=== PATIENT | female | born 1950 | race Caucasian/White ===

== ENCOUNTER → 2022-08-21 11:41 | Outpatient (CLI) | payer MEDICARE, SELFPAY ==
--- NOTE | ~2022-08-21 | XR_ITS ---
XR chest 2V DATE: 08/21/2022 11:57 INDICATION: Increased shortness of breath for 4 days TECHNIQUE: 2 views COMPARISON: 09/02/2001 view chest FINDINGS: Borderline heart size. Aortic arch calcification. There is bilateral hyperinflation suggesting obstructive airways disease. There is mild infiltrate or atelectasis in both lower lung zones, right greater than left. Prominent right cardiophrenic fat pad. Diffuse osteopenia. IMPRESSION: Mild infiltrate or atelectasis in the lower lung zones, right greater than left Bilateral hyperinflation suggesting obstructive airways disease Borderline heart size Aortic atherosclerosis Reviewed, dictated and finalized at location B. CAL EDITOR IMPRESSION: Mild infiltrate or atelectasis in the lower lung zones, right great er than left Bilateral hyperinflation suggesting obstructive airways disease Borderline heart size Aortic atherosclerosis
== END ==
PROVIDERS: PCP Family Medicine; Visit Provider Family Medicine
DX: R06.02 Shortness of breath (principal)
CPT/HCPCS: 71046

== ENCOUNTER 2022-09-09 07:10 | Outpatient (CLI) | payer MEDICARE, SELFPAY ==
--- NOTE | 2022-09-09 07:25 | ECHO_ITS ---
Patient Info Name: Keely Levy Age: 71 years : 1950 Gender: Female Ht: 59 in Wt: 160 lbs BSA: 1.77 m2 HR: 59 bpm BP: 175 / 92 mmHg Technical Quality: Good Exam Date: 09/09/2022 7:33 AM Exam Location: [facility] Patient Status: Outpatient Admit Date: 09/09/2022 Staff Ordering Physician: Iván Lee MD Clinical Laboratory Science Professor: Tio Harper, TRINITY, RT Attending Provider: Iván Lee MD Referring Physician: Jesus WEI; Exam Type: CA echo doppler color flow Study Info Indications R01.1 - Cardiac murmur, unspecified Complete two-dimensional, color flow and Doppler transthoracic echocardiogram is performed. Strain analysis performed. Summary 1. Complete two-dimensional, color flow and Doppler transthoracic echocardiogram is performed. 2. Left ventricular chamber dimension is normal. 3. Left ventricular systolic function is normal, estimated at 60-65%. 4. The left ventricular diastolic function is grade I diastolic dysfunction. 5. E/e' 11 is mildly elevated. 6. Global longitudinal strain is abnormal at -15.0%. 7. Left atrial chamber dimension is mildly enlarged. 8. There is mild aortic valve sclerosis. 9. There is mild aortic valve regurgitation. 10. There is trace pulmonic regurgitation. Left Ventricle E/e' 11 is mildly elevated. Global longitudinal strain is abnormal at -15.0%. Left ventricular chamber dimension is normal. Left ventricular systolic function is normal, estimated at 60-65%. The left ventricular diastolic function is grade I diastolic dysfunction. Right Ventricle Right ventricular systolic function is normal and with normal TAPSE 1.9 cm. Right ventricular chamber dimension is normal. Left Atria Left atrial chamber dimension is mildly enlarged. Right Atria Right atrial chamber dimension is normal. Aortic Valve The aortic valve is trileaflet. There is mild aortic valve sclerosis. There is no aortic valve stenosis. There is mild aortic valve regurgitation. Pulmonic Valve There is trace pulmonic regurgitation. Mitral Valve There is no mitral valve stenosis. There is no mitral valve regurgitation. Tricuspid Valve There is no tricuspid valve regurgitation. Pericardium/Pleural There is no pericardial effusion. Inferior Vena Cava Normal inferior vena cava with >50% collapse upon inspiration consistent with normal right atrial pressure, 5 mmHg. Aorta The aortic root size at the sinus of Valsalva is normal. Left Ventricular Outflow Tract Name Value Normal LVOT 2D LVOT Diameter 2.0 cm LVOT Doppler LVOT Peak Gradient 3 mmHg LVOT Mean Gradient 2 mmHg LVOT VTI 26 cm LVOT VTI/AV VTI Ratio 0.9 LVOT Stroke Volume 81 ml LVOT CO 4.2 l/min LVOT CI 2.4 l/min/m2 Mitral Valve Name Value Normal
== END 2022-09-09 07:11 | disposition home or self-care (01) ==
PROVIDERS: PCP Family Medicine; Visit Provider Family Medicine
DX: I50.9 Heart failure, unspecified (principal); R01.1 Cardiac murmur, unspecified; I35.8 Other nonrheumatic aortic valve disorders
CPT/HCPCS: 93306

== ENCOUNTER → 2023-09-29 11:12 | Outpatient (CLI) | payer MEDICARE, SELFPAY ==
--- NOTE | ~2023-09-29 | DEXA_ITS ---
Bone Density Report Name: LIO GARCIA Age: 72 Sex: Female Ethnicity: White Date of : 1950 Indication: postmenopausal; screening for osteoporosis; Referring Provider: JUSTIN CARLIN Study: Bone densitometry was performed. Exam Date: September 29, 2023 Accession number: [id number] Bone Density: Region BMD T-score Z-score Classification AP Spine (L1-L4) 1.106 0.5 2.9 Normal Femoral Neck (Left) 0.743 -1.0 1.1 Normal Total Hip (Left) 0.911 -0.3 1.5 Normal Femoral Neck (Right) 0.734 -1.0 1.0 Normal Total Hip (Right) 0.910 -0.3 1.5 Normal Total Hip Mean 0.911 -0.3 1.5 Normal World Health Organization criteria for BMD impression classify patients as: Normal (T-score at or above -1.0), Osteopenia (T-score between -1.0 and -2.5), or Osteoporosis (T-score at or below -2.5). 10-year Fracture Risk: FRAX not reported because: All T-scores for Spine Total, Hip Total, Femoral Neck at or above -1.0 Clinical Information Provided by Patient: Has used the following medications: Vitamin D Patient maximum height was 59 Menopause Age: 46 No regular weight bearing exercise Does not regularly consume dairy products Drinks caffeinated beverages Onset of menses at age 11 Number of children 3 Impression: The patient has normal bone mass. Discussion: BONE DENSITY IS ABOVE THE MINIMUM DESIRABLE LEVEL AT ALL SKELETAL SITES TESTED. This patient?s bone mineral density is above the minimum desirable level (T-score -1.0 or better) at all sites measured. The patient should follow a healthful lifestyle (good nutrition with adequate calcium and vitamin D, and appropriate weight-bearing exercise). Follow-Up: Consider repeating this study in 5 years or sooner if there is some new clinical indication. Reported by: [facility] on 09/29/2023 11:35:00 AM. Reviewed, dictated and finalized at location ARay HOOPER
== END ==
PROVIDERS: PCP Family Medicine; Visit Provider Nurse Practitioner Family
DX: M81.0 Age-related osteoporosis without current pathological fracture (principal); Z13.820 Encounter for screening for osteoporosis
CPT/HCPCS: 77080

== ENCOUNTER 2023-12-24 12:17 | Inpatient (IN) | payer MEDICARE, SELFPAY ==
[2023-12-24] VITALS (10 sets, daily range): BP systolic 184–227; BP diastolic 50–73; PULSE 45–56; RESP 18–25; TEMP 36.1–36.6; O2SAT 85–98; BMI 34.4
--- NOTE | ~2023-12-24 | XR_ITS ---
EXAMINATION: XR chest 2V DATE: 12/24/2023 13:27 INDICATION: Shortness of breath. Congestive heart failure. TECHNIQUE: Frontal and lateral views of the chest were obtained. COMPARISON: Chest 2 views 08/21/2022, 09/02/2009 FINDINGS: There are small pleural effusions. There is a diffuse interstitial pattern in the lungs, co nsistent with mild pulmonary edema. No pneumothorax. Cardiomegaly is noted. There are prominent peric ardial fat pads. IMPRESSION: 1. Mild pulmonary edema. 2. Small pleural effusions. 3. Cardiomegaly. Reviewed, dictated and finalized at location A.
--- NOTE | 2023-12-24 12:25 | ECG_ITS ---
SEE SCANNED COPY FOR CONFIRMED REPORT MTDD
[2023-12-24 12:47] LABS: Basophils Percent Auto 0.3 % (0.2-1.2); Eosinophils Absolute Auto 0.1 K/mm3 (0-0.3); Eosinophils Percent Auto 0.7 % (0-4.4); Hematocrit 50.2 % (37.0-47.0); Hemoglobin 15.7 g/dL (12.0-15.0); Immature Granulocyte Absolute 0.06 K/mm3 (0.00-0.031); Immature Granulocyte Percent A 0.5 % (0-0.5); Lymphocytes Percent Auto 12.3 % (18.3-44.2); Mean Corpuscular HGB Conc 31.3 g/dl (32-36); Mean Corpuscular Hemoglobin 29.8 pg (26-34); Mean Corpuscular Volume 95.4 fl (80-100); Mean Platelet Volume 8.9 fl (7.4-10.4); Monocytes Absolute Auto 0.7 K/mm3 (0.1-0.6); Monocytes Percent Auto 6.1 % (2.6-8.5); Neutrophils Absolute Auto 9.8 K/mm3 (1.3-6.7); Neutrophils Percent Auto 80.1 % (45.5-73.1); Platelet Count Result 217 k/mm3 (150-375); Red Blood Count 5.26 M/mm3 (4.2-5.4); Red Cell Distribution Width 14.1 % (11.5-14.5); White Blood Count 12.2 K/mm3 (4.5-10.0)
[2023-12-24 12:56] LABS: Alanine Aminotransferase 26 U/L (6-35); Albumin Level 4.2 g/dL (3.5-5.1); Alkaline Phosphatase 98 U/L (38-126); Anion Gap 5 mmol/L (4-12); Aspartate Amino Transferase 26 U/L (14-36); Bilirubin,Total 0.6 mg/dL (0.2-1.3); Blood Urea Nitrogen 11 mg/dL (7-17); Calcium 8.8 mg/dL (8.4-10.2); Carbon Dioxide 31 mmol/L (22-30); Chloride 103 mmol/L (98-107); Estimated Glomerular Filt Rate > 60; Glucose 101 mg/dL (65-110); Potassium 4.1 mmol/L (3.4-5.0); Sodium 139 mmol/L (137-145)
[2023-12-24 12:57] LABS: Prothrombin Time 13.5 Seconds (11.1-14.7)
[2023-12-24 12:58] LABS: Partial Thromboplastin Time 29.4 Seconds (22.3-36.8)
[2023-12-24 13:08] LABS: NT Pro B Type Natriuretic Pept 3250 pg/mL (19.9-100); Troponin I < 0.012 ng/mL (0.000-0.034)
[2023-12-24 13:16] LABS: Base Excess ABG 4.9 mEq/l (+/-2.0); Carboxyhemoglobin 4.4 % THb (0-2.0); Fractional Inspired Oxygen 28 %; HCO3 ABG 31.5 mEq/l (22.0-26.0); Methemoglobin ABG 0.2 %THb (0-1.5); Oxygen Content ABG 20.3 %vol (16.0-22.0); Oxyhemoglobin 88.8 % THb (90.0-100.0); PCO2 ABG 53.4 mmHg (35.0-45.0); PO2 ABG 67.6 mmHg (80.0-100.0); PO2 FiO2 Ratio Arterial Blood 2.41 %; Reduced Hemoglobin 6.6 %THb (0-5.0); Total Hemoglobin 16.3 g/dL (12.0-18.0); pH ABG 7.389 (7.350-7.450)
[2023-12-24 13:17] LABS: Device NASAL CANNULA; Modified Allen's Test Pass; Site Drawn RIGHT RADIAL
[2023-12-24] MEDS: FUROSEMIDE INJ 40 MG/4 ML VIAL IV PUSH ×2 (14:07→20:04)
--- NOTE | 2023-12-24 14:15 | ED.SOB ---
HPI - SOB/Dyspnea General Chief Complaint: Shortness of Breath/Dyspnea Stated Complaint: SOB Time Seen by Provider: 12/24/23 12:25 History of Present Illness HPI Narrative: the patient is a 73-year-old female who presents ER with shortness of breath. She went to her PCPs office today and was too tired to walk or talk upon getting inside. She reports progressive shortness of breath over last couple of days. Patient found to be hypoxic her doctor's office and on arrival here. She is on supplemental oxygen and is feeling improved. Reports compliance with home medication. No chest pain. Related Data Home Medications Medication Instructions Recorded Confirmed atenolol 50 mg tablet 50 mg PO Q12H 12/24/23 12/24/23 ezetimibe 10 mg tablet (Zetia) 10 mg PO QAM 12/24/23 12/24/23 lisinopril 20 mg tablet 20 mg PO Q12H 12/24/23 12/24/23 Allergies Allergy/AdvReac Type Severity Reaction Status Date / Time atorvastatin Allergy Unknown aches Verified 12/24/23 12:26 metformin Allergy Unknown Skin Verified 12/24/23 12:26 Reaction Review of Systems Review of Systems: All systems reviewed & are unremarkable except as noted in HPI and below Constitutional: Constitutional: Reports no additional constitutional complaints ENT: Reports system reviewed and no additional complaints, except as documented Cardiovascular: Cardiovascular: Reports no additional cardiovascular complaints Respiratory: Respiratory: Denies chest congestion, Denies cough, Reports dyspnea and Denies wheezing Gastrointestinal: Gastrointestinal: Reports no additional gastrointestinal complaints Musculoskeletal: Musculoskeletal: Reports no additional musculoskeletal complaints Neurologic: Reports system reviewed and no additional complaints, except as documented [facility] Past Medical History Medical History (Updated 12/24/23 @ 21:34 by Elver Pierce MD) Aortic regurgitation Aortic valve sclerosis CHF (congestive heart failure) COPD (chronic obstructive pulmonary disease) Essential (primary) hypertension Hepatitis C antibody test negative (~08/10/19) History of mammogram (~09/13/13) Internal derangement of right knee Migraine NOS/intractable Mixed hyperlipidemia Postmenopausal Silicosis Surgical History Surgical History History of adenoidectomy (~1959) History of tonsillectomy (~1959) History of tubal ligation (~1977) Family History Family History (Updated 12/24/23 @ 17:07 by Jocy Cano RN) Father Patient's father is Sibling Family history of malignant neoplasm of brain Diabetes mellitus Hypertension Other Family history of cardiovascular disease Family history of hypercholesterolemia Social History Social History Social History: Caffeine-coffee/tea Smoking packs per day: 1 Smoking cigarettes per day: 20.0 Years smoked: 15 Smoking pack-years: 15.00 Smoking status: Former smoker Tobacco type: cigarettes Alcohol intake: never Substance use: never Substance use type: does not use Do You Feel Safe in your Home?: Yes Lack of Transportation: No Lack of Food: Never True Current Housing: I Have Housing Concerned About Future Housing: No Difficulty Paying Gas/Electric Bills: No Difficulty Paying for Meds: No Currently Unemployed: No Education: High School Diploma/GED Difficulty w/ Childcare or Family Care: No Spiritual care concerns: No Exam Narrative: GENERAL: Well-appearing, well-nourished, and in no acute distress. HEAD: Normocephalic, atraumatic. ENT: Mucous membranes moist. CHEST: Clear to auscultation but diminished throughout. No respiratory distress. HEART: bradycardic and regular. Normal peripheral pulses. ABDOMEN: Soft, nontender, nondistended. EXTREMITIES: Normal range of motion. 1+ edema. SKIN: Warm, dry, no rash. NEURO: Alert
[2023-12-24] MEDS: NITROGLYCERIN OINTMENT 1 INCH DOSE TRANSDERM (14:24)
--- NOTE | 2023-12-24 17:11 | ADMGEN ---
This patient, Keely Levy, was admitted to IMU Room 205-01. Patient/family oriented to hospital policies and general routines including ID bracelet, bed and alarms, visiting hours, pain management, procedures, bathroom and other care routines, personal items, smoking policy, room service/diet, and visiting hours. Information on how to activate the Rapid Response Team has been discussed. Patient/Family are encouraged to report perceived risks to care and to ask questions if they do not understand what they are told or what they should do.
--- NOTE | 2023-12-24 21:08 | PM.IMHP ---
H&P: HPI History of Present Illness Date/Time: 12/24/23 21:08 Chief Complaint: sob Narrative: This is a 73-year-old female with past medical history significant for obstructive sleep apnea on CPAP at nighttime, hypertension, type diabetes mellitus, Congestive heart failure. Patient presents to the emergency room due to shortness of breath that has been present for several days, she has a persistent cough productive of scanty pearly white sputum, denies any fevers, rigors, chills, denies leg swelling no chest pain no palpitations, no dizziness, no lightheadedness, no headaches. Patient had made appointment with her primary care physician due to progressively worsening shortness of breath now present with mild exertion upon arrival to the physician's office patient was in severe respiratory distress which prompted the office to call EMS and patient was brought to the emergency room where she was found to have a low oxygen saturation and placed on supplemental oxygen by nasal cannula. Patient was also found to have a systolic blood pressure 230. preliminary workup was significant for a BNP upwards 3000 Patient has been placed in observation for further evaluation management and treatment. EXAMINATION: XR chest 2V DATE: 12/24/2023 13:27 INDICATION: Shortness of breath. Congestive heart failure. TECHNIQUE: Frontal and lateral views of the chest were obtained. COMPARISON: Chest 2 views 08/21/2022, 09/02/2009 FINDINGS: There are small pleural effusions. There is a diffuse interstitial pattern in the lungs, consistent with mild pulmonary edema. No pneumothorax. Cardiomegaly is noted. There are prominent pericardial fat pads. IMPRESSION: 1. Mild pulmonary edema. 2. Small pleural effusions. 3. Cardiomegaly. Review of Systems Review of Systems: sob, cough productive of scanty sputum Constitutional: Constitutional: Denies chills, Denies fatigue, Denies fever(s), Denies malaise, Denies night sweats and Denies weakness Eyes: Eyes: Denies change in vision ENT: Denies dysphagia and Denies odynophagia Cardiovascular: Cardiovascular: Denies chest pain, Denies leg edema, Denies radiating jaw, neck or arm pain, Denies palpitations and Reports dyspnea on exertion Respiratory: Respiratory: Reports cough Gastrointestinal: Gastrointestinal: Denies abdominal pain, Denies dyspepsia, Denies heartburn, Denies diarrhea, Denies nausea and Denies vomiting Genitourinary: Genitourinary: Denies dysuria Musculoskeletal: Musculoskeletal: Denies arthralgias and Denies joint swelling Integumentary/Breasts: Skin/Breast: Denies rash Neurologic: Denies focal weakness and Denies Sensory deficit (Neuro) Psychiatric: Psychiatric: Reports no additional psychiatric complaints and Reports as per HPI Endocrine: Endocrine: Denies cold intolerance, Denies heat intolerance, Denies polyphagia, Denies polydipsia, Denies polyuria and Denies palpitations Hematologic/Lymphatic: Hematologic/Lymphatic: Reports no additional hematologic/lymphatic complaints and Reports as per HPI Allergic/Immunologic: Allergic/Immunologic: Reports no additional allergic/immunologic complaints and Reports as per HPI [facility] Past Medical History Medical History (Updated 12/25/23 @ 02:03 by Zaida Ulloa MD) Aortic regurgitation Aortic valve sclerosis CHF (congestive heart failure) COPD (chronic obstructive pulmonary disease) Essential (primary) hypertension Hepatitis C antibody test negative (~08/10/19) History of mammogram (~09/13/13) Internal derangement of right knee Migraine NOS/intractable Mixed hyperlipidemia Postmenopausal Silicosis Surgical History Surgical History History of adenoidectomy (~1959) History of tonsillectomy (~1959) History of tubal ligation (~1977) Family History Family History (Updated 12/24/23 @ 17:07 by Jocy Cano RN) Father Patient's father is Sibli
[2023-12-25] VITALS (18 sets, daily range): BP systolic 151–176; BP diastolic 47–89; PULSE 43–65; RESP 16–24; TEMP 36.4–37.2; O2SAT 91–96
--- NOTE | 2023-12-25 | ECHO_ITS ---
Patient Info Name: Keely Levy Age: 73 years : 1950 Gender: Female Ht: 59 in Wt: 156 lbs BSA: 1.75 m2 HR: 95 bpm BP: 151 / 64 mmHg Heart Rhythm: Sinus Rhythm Technical Quality: Good Exam Date: 12/25/2023 6:33 AM Exam Location: [facility] Lab Patient Status: Inpatient Admit Date: 12/24/2023 Staff Ordering Physician: Flor Whiteside APRN Accounts Collector: Jose Caro RDCS Attending Provider: Trevor Bettencourt MD Referring Physician: Miesha PINEDA; Exam Type: CA echo doppler color flow Study Info Indications - elevated bnp, pul edema Complete two-dimensional, color flow and Doppler transthoracic echocardiogram is performed. Summary 1. Complete two-dimensional, color flow and Doppler transthoracic echocardiogram is performed. 2. Left ventricular dimension at the upper limits of normal with overall normal systolic function. 3. Mild to moderate aortic valve regurgitation. 4. Mild mitral annular calcification. Left Ventricle Left ventricular chamber dimension is mildly enlarged. Left ventricular systolic function is normal, estimated at 55-60%. The left ventricular diastolic function is normal. Right Ventricle Right ventricular chamber dimension is normal. Left Atria Left atrial chamber dimension is mildly enlarged. Right Atria Right atrial chamber dimension is normal. Aortic Valve The aortic valve is trileaflet. There is mild aortic valve sclerosis. There is mild to moderate aortic valve regurgitation. Pulmonic Valve The pulmonic valve is not well visualized. Mitral Valve The mitral valve has normal leaflets. The mitral valve annulus is mildly calcified. Tricuspid Valve The tricuspid valve leaflets are normal. Pericardium/Pleural The pericardium appears normal. Aorta The aortic root size at the sinus of Valsalva is normal. Report Signatures
[2023-12-25] MEDS: atenoloL 50 MG TABLET PO ×2 (02:16→08:43)
[2023-12-25] MEDS: lisinopriL 20 MG TABLET PO ×3 (02:16→22:15)
[2023-12-25] MEDS: FUROSEMIDE INJ 40 MG/4 ML VIAL IV PUSH ×2 (08:43→22:15)
--- NOTE | 2023-12-25 10:25 | PM.IMPN ---
Progress Note: A&P Assessment and Plan (1) Acute exacerbation of CHF (congestive heart failure): Code(s): I50.9 - Heart failure, unspecified Status: Acute Assessment and Plan: diurese as needed- I/O echocardiogram completed- EF 55-60% Summary ? 1. Complete two-dimensional, color flow and Doppler transthoracic echocardiogram is performed. ? 2. Left ventricular dimension at the upper limits of normal with overall normal systolic function. ? 3. Mild to moderate aortic valve regurgitation. ? 4. Mild mitral annular calcification. - daily intake and output - cardiology consulted -BP improved - will move out of MICU to med surg tele (2) Acute hypoxic respiratory failure: Code(s): J96.01 - Acute respiratory failure with hypoxia Status: Acute Assessment and Plan: currently on supplemental oxygen by nasal cannula wean off of oxygen as needed continuous pulse ox cpap at night (3) Hypertension, isolated systolic: Code(s): I10 - Essential (primary) hypertension Status: Acute Assessment and Plan: restart home meds- atenolol 50 mg q12hm lisinopril 20 mg continue to monitor- BP imporved (4) Type 2 diabetes mellitus: Code(s): E11.9 - Type 2 diabetes mellitus without complications Status: Acute Assessment and Plan: holding Zetia insulin sliding scale as needed Time Spent With Patient Time with patient: 15 - 25 minutes Subjective Date/time seen: 12/25/23 10:25 Interval history: admitted 12/23 for SOB x couple of days. She went to her PCPs office, was too tired to walk or talk upon getting inside. Patient found to be hypoxic her doctor's office.? She was placed on supplemental oxygen and felt better.? Reports compliance with home medication.? No chest pain. Patient was also found to have a? systolic blood pressure 230.? preliminary workup was significant for a BNP around 3000 Patient has been placed in observation for further evaluation management and treatment. 12/24- she is seen and examined today. She is sitting on side of the bed, alert, oriented, in no respiratory distress. Reports feeling a lot better Review of Systems Review of Systems: sob, cough productive of scanty sputum Constitutional: Constitutional: Denies chills, Denies fatigue, Denies fever(s), Denies malaise, Denies night sweats and Denies weakness Eyes: Eyes: Denies change in vision ENT: Denies dysphagia and Denies odynophagia Cardiovascular: Cardiovascular: Denies chest pain, Denies leg edema, Denies radiating jaw, neck or arm pain, Denies palpitations and Reports dyspnea on exertion Respiratory: Respiratory: Reports cough and Reports dyspnea on exertion Gastrointestinal: Gastrointestinal: Denies abdominal pain, Denies dysphagia, Denies dyspepsia, Denies heartburn, Denies diarrhea, Denies nausea, Denies odynophagia and Denies vomiting Genitourinary: Genitourinary: Denies dysuria Musculoskeletal: Musculoskeletal: Denies arthralgias and Denies joint swelling Integumentary/Breasts: Skin/Breast: Denies rash Neurologic: Denies focal weakness, Denies Sensory deficit (Neuro) and Denies weakness Psychiatric: Psychiatric: Reports no additional psychiatric complaints and Reports as per HPI Endocrine: Endocrine: Denies cold intolerance, Denies fatigue, Denies heat intolerance, Denies polyphagia, Denies polydipsia, Denies polyuria and Denies palpitations Hematologic/Lymphatic: Hematologic/Lymphatic: Reports no additional hematologic/lymphatic complaints and Reports as per HPI Allergic/Immunologic: Allergic/Immunologic: Reports no additional allergic/immunologic complaints and Reports as per HPI Exam Narrative: patient is laying in bed Const: General: comfortable, no acute distress, well developed, alert, awake, average body habitus and overweight Nutritional Appearance: average body habitus and overweight Orientation/consciousness: patient oriented x3 HENMT: Head: n
[2023-12-25 11:45] LABS: Glucose Point of Care 84 mg/dl (65-105)
[2023-12-25 18:34] LABS: Glucose Point of Care 102 mg/dl (65-105)
[2023-12-25 19:17] LABS: Glucose Point of Care 133 mg/dl (65-105)
--- NOTE | 2023-12-25 20:44 | PC.NURSE ---
Pt transferred from IMU 205-1 to 2nd Medical Room 259. Report received from LASHAY Castañeda.
[2023-12-26] VITALS (12 sets, daily range): BP systolic 136–151; BP diastolic 42–54; PULSE 43–58; RESP 17–20; TEMP 36.4–36.6; O2SAT 92–96
[2023-12-26 05:06] LABS: Hematocrit 51.3 % (37.0-47.0); Hemoglobin 15.7 g/dL (12.0-15.0); Mean Corpuscular HGB Conc 30.6 g/dl (32-36); Mean Corpuscular Hemoglobin 29.6 pg (26-34); Mean Corpuscular Volume 96.6 fl (80-100); Mean Platelet Volume 9.2 fl (7.4-10.4); Platelet Count Result 207 k/mm3 (150-375); Red Blood Count 5.31 M/mm3 (4.2-5.4); Red Cell Distribution Width 13.9 % (11.5-14.5); White Blood Count 9.4 K/mm3 (4.5-10.0)
[2023-12-26 05:16] LABS: Alanine Aminotransferase 21 U/L (6-35); Alkaline Phosphatase 85 U/L (38-126); Anion Gap 4 mmol/L (4-12); Aspartate Amino Transferase 21 U/L (14-36); Bilirubin,Total 0.8 mg/dL (0.2-1.3); Blood Urea Nitrogen 19 mg/dL (7-17); Calcium 8.5 mg/dL (8.4-10.2); Carbon Dioxide 39 mmol/L (22-30); Chloride 95 mmol/L (98-107); Estimated Glomerular Filt Rate > 60; Glucose 99 mg/dL (65-110); Potassium 3.5 mmol/L (3.4-5.0); Sodium 138 mmol/L (137-145)
--- NOTE | 2023-12-26 08:23 | PM.IMPN ---
Progress Note: A&P Assessment and Plan (1) Acute exacerbation of CHF (congestive heart failure): Code(s): I50.9 - Heart failure, unspecified Status: Acute Assessment and Plan: diurese as needed- I/O echocardiogram completed- EF 55-60% Summary ? 1. Complete two-dimensional, color flow and Doppler transthoracic echocardiogram is performed. ? 2. Left ventricular dimension at the upper limits of normal with overall normal systolic function. ? 3. Mild to moderate aortic valve regurgitation. ? 4. Mild mitral annular calcification. - daily intake and output - cardiology consulted -BP improved - moved out of MICU 12/24 to med surg tele - will stop atenolol as bradicardic - will add jardiance - will wait for card eval to see if any BP/chf meds recommended (2) Acute hypoxic respiratory failure: Code(s): J96.01 - Acute respiratory failure with hypoxia Status: Acute Assessment and Plan: currently on supplemental oxygen by nasal cannula wean off of oxygen as needed continuous pulse ox cpap at night (3) Hypertension, isolated systolic: Code(s): I10 - Essential (primary) hypertension Status: Acute Assessment and Plan: restart home meds- lisinopril 20 mg bid, will hold atelolol for now as was not even given as pt bradicardic continue to monitor- BP improved 151/43 this am (4) Type 2 diabetes mellitus: Code(s): E11.9 - Type 2 diabetes mellitus without complications Status: Acute Assessment and Plan: holding Zetia insulin sliding scale as needed Time Spent With Patient Time with patient: 15 - 25 minutes Subjective Date/time seen: 12/26/23 08:23 Interval history: admitted 12/23 for SOB x couple of days. She went to her PCPs office, was too tired to walk or talk upon getting inside. Patient found to be hypoxic her doctor's office.? She was placed on supplemental oxygen and felt better.? Reports compliance with home medication.? No chest pain. Patient was also found to have a? systolic blood pressure 230.? preliminary workup was significant for a BNP around 3000 Patient has been placed in observation for further evaluation management and treatment. 12/24- she is seen and examined today. She is sitting on side of the bed, alert, oriented, in no respiratory distress. Reports feeling a lot better. 5/12- seen and examined. Reports doing well. up and moving in room. Still has o2- goal today is to stop oxygen as tolerated. Will order card eval. she reports that he pcp diagnoses her with CHF last year and she never seen cardiology for an eval and treatment. Review of Systems Review of Systems: sob, cough productive of scanty sputum Constitutional: Constitutional: Denies chills, Denies fatigue, Denies fever(s), Denies malaise, Denies night sweats and Denies weakness Eyes: Eyes: Denies change in vision ENT: Denies dysphagia and Denies odynophagia Cardiovascular: Cardiovascular: Denies chest pain, Denies leg edema, Denies radiating jaw, neck or arm pain, Denies palpitations and Reports dyspnea on exertion Respiratory: Respiratory: Reports cough and Reports dyspnea on exertion Gastrointestinal: Gastrointestinal: Denies abdominal pain, Denies dysphagia, Denies dyspepsia, Denies heartburn, Denies diarrhea, Denies nausea, Denies odynophagia and Denies vomiting Genitourinary: Genitourinary: Denies dysuria Musculoskeletal: Musculoskeletal: Denies arthralgias and Denies joint swelling Integumentary/Breasts: Skin/Breast: Denies rash Neurologic: Denies focal weakness, Denies Sensory deficit (Neuro) and Denies weakness Psychiatric: Psychiatric: Reports no additional psychiatric complaints and Reports as per HPI Endocrine: Endocrine: Denies cold intolerance, Denies fatigue, Denies heat intolerance, Denies polyphagia, Denies polydipsia, Denies polyuria and Denies palpitations Hematologic/Lymphatic: Hematologic/Lymphatic: Reports no additional hematologic/lym
[2023-12-26] MEDS: lisinopriL 20 MG TABLET PO ×2 (08:45→21:22)
[2023-12-26] MEDS: FUROSEMIDE INJ 40 MG/4 ML VIAL IV PUSH ×2 (08:45→21:22)
[2023-12-27] VITALS (13 sets, daily range): BP systolic 114–139; BP diastolic 41–54; PULSE 52–65; RESP 16–18; TEMP 36.4–36.8; O2SAT 91–98
[2023-12-27 05:57] LABS: Hemoglobin 15.3 g/dL (12.0-15.0); Mean Corpuscular HGB Conc 30.6 g/dl (32-36); Mean Corpuscular Hemoglobin 29.5 pg (26-34); Mean Corpuscular Volume 96.3 fl (80-100); Platelet Count Result 207 k/mm3 (150-375); Red Blood Count 5.19 M/mm3 (4.2-5.4); Red Cell Distribution Width 13.7 % (11.5-14.5); White Blood Count 9.3 K/mm3 (4.5-10.0)
[2023-12-27 06:04] LABS: Alanine Aminotransferase 18 U/L (6-35); Albumin Level 3.7 g/dL (3.5-5.1); Alkaline Phosphatase 79 U/L (38-126); Aspartate Amino Transferase 18 U/L (14-36); Bilirubin,Total 0.7 mg/dL (0.2-1.3); Blood Urea Nitrogen 18 mg/dL (7-17); Calcium 8.4 mg/dL (8.4-10.2); Carbon Dioxide > 40 mmol/L (22-30); Chloride 93 mmol/L (98-107); Estimated Glomerular Filt Rate > 60; Glucose 101 mg/dL (65-110); Potassium 3.2 mmol/L (3.4-5.0); Sodium 135 mmol/L (137-145)
--- NOTE | 2023-12-27 08:45 | PM.IMPN ---
Progress Note: A&P Assessment and Plan (1) Acute exacerbation of CHF (congestive heart failure): Code(s): I50.9 - Heart failure, unspecified Status: Acute Assessment and Plan: HFpEF unknown if systolic vs diastolic diurese as needed- I/O echocardiogram completed- EF 55-60% Summary ? 1. Complete two-dimensional, color flow and Doppler transthoracic echocardiogram is performed. ? 2. Left ventricular dimension at the upper limits of normal with overall normal systolic function. ? 3. Mild to moderate aortic valve regurgitation. ? 4. Mild mitral annular calcification. - daily intake and output - cardiology consulted -BP improved - moved out of MICU 12/24 to med surg tele - atenolol was stopped as bradycardic - on jardiance now - hypokalemia-will replace K -awaiting card consult (2) Acute hypoxic respiratory failure: Code(s): J96.01 - Acute respiratory failure with hypoxia Status: Acute Assessment and Plan: currently on supplemental oxygen by nasal cannula wean off of oxygen as needed continuous pulse ox cpap at night (3) Hypertension, isolated systolic: Code(s): I10 - Essential (primary) hypertension Status: Acute Assessment and Plan: restart home meds- lisinopril 20 mg bid, will hold atelolol for now as was not even given as pt bradicardic continue to monitor- BP improved (4) Type 2 diabetes mellitus: Code(s): E11.9 - Type 2 diabetes mellitus without complications Status: Acute Assessment and Plan: holding Zetia insulin sliding scale as needed Plan will stop IV lasix - will order 20 mg po lasix starting tomorrow Time Spent With Patient Time with patient: less than 15 minutes Subjective Date/time seen: 12/27/23 08:45 Interval history: admitted 12/23 for SOB x couple of days. She went to her PCPs office, was too tired to walk or talk upon getting inside. Patient found to be hypoxic her doctor's office.? She was placed on supplemental oxygen and felt better.? Reports compliance with home medication.? No chest pain. Patient was also found to have a? systolic blood pressure 230.? preliminary workup was significant for a BNP around 3000 Patient has been placed in observation for further evaluation management and treatment. 12/24- she is seen and examined today. She is sitting on side of the bed, alert, oriented, in no respiratory distress. Reports feeling a lot better. 12/25- seen and examined. Reports doing well. up and moving in room. Still has o2- goal today is to stop oxygen as tolerated. Will order card eval. she reports that he pcp diagnoses her with CHF last year and she never seen cardiology for an eval and treatment. 12/26 Seen and exmained today, down to 1 l per nc. doing well. was not able to drink much fluids at all. no swelling, no sob, no chest pain. Review of Systems Review of Systems: sob, cough productive of scanty sputum Constitutional: Constitutional: Denies chills, Denies fatigue, Denies fever(s), Denies malaise, Denies night sweats and Denies weakness Eyes: Eyes: Denies change in vision ENT: Denies dysphagia and Denies odynophagia Cardiovascular: Cardiovascular: Denies chest pain, Denies leg edema, Denies radiating jaw, neck or arm pain, Denies palpitations and Reports dyspnea on exertion Respiratory: Respiratory: Reports cough and Reports dyspnea on exertion Gastrointestinal: Gastrointestinal: Denies abdominal pain, Denies dysphagia, Denies dyspepsia, Denies heartburn, Denies diarrhea, Denies nausea, Denies odynophagia and Denies vomiting Genitourinary: Genitourinary: Denies dysuria Musculoskeletal: Musculoskeletal: Denies arthralgias and Denies joint swelling Integumentary/Breasts: Skin/Breast: Denies rash Neurologic: Denies focal weakness, Denies Sensory deficit (Neuro) and Denies weakness Psychiatric: Psychiatric: Reports no additional psychiatric complaints and Reports as per HPI Endocrine:
[2023-12-27] MEDS: EMPAGLIFLOZIN 10 MG TABLET PO (09:12)
[2023-12-27] MEDS: FUROSEMIDE INJ 40 MG/4 ML VIAL IV PUSH (09:12)
[2023-12-27] MEDS: lisinopriL 20 MG TABLET PO ×2 (09:12→20:05)
[2023-12-27] MEDS: SODIUM CHLORIDE 0.9% IV 1,000 ML 100 ML IV CONT (09:47)
[2023-12-27] MEDS: POTASSIUM CITRATE 5 MEQ TAB CR 10 MEQ PO (09:47)
--- NOTE | 2023-12-27 13:04 | P.CDI_ITS ---
CDI Query Clarification Request Acute exacerbation of CHF has been documented. Initial BNP of 3250, patient receiving IV Lasix. Please specify type of heart failure if known. * Systolic * Diastolic * Combined Systolic and Diastolic * Unknown <GURMEET Platt - Last Filed: 12/27/23 13:06> Clarified Diagnosis Clarified Diagnosis: unknown <Rita Daniels APRN - Last Filed: 12/27/23 14:24>
--- NOTE | 2023-12-27 15:46 | PM.CNCAR ---
Assessment and Plan Assessment and plan (1) Acute exacerbation of CHF (congestive heart failure): Code(s): I50.9 - Heart failure, unspecified Status: Acute Plan This is a 73-year-old lady with a history of congestive heart failure decompensation which for which she was hospitalized 3 days ago. She has had a good clinical response to IV diuresis with furosemide and she is in no distress any longer. She is not having any ischemic symptomatology. Her echocardiogram shows borderline left ventricular enlargement with moderate aortic regurgitation. I would recommend leaving her on her lisinopril at this time and starting carvedilol at home moderate dosage of 6.25 mg q.12 hours. I would also recommend starting spironolactone 25 mg daily. She has appropriately been started on Jardiance by the primary team. I would hope she can be discharged in the next 24-48 hours if she is clinically stable and well compensated. It remains to be seen whether she needs both spironolactone and furosemide. She was on no diuretic therapy coming into the hospital. I will follow her in the office in a timely fashion after discharge for medical titration. At this point she is not having any ischemic symptoms and I do not think she needs to remain in the hospital for ischemia evaluation at least at this time Iván Rojas MD [facility] History of Present Illness History of Present Illness Consult date/time: 12/27/23 15:46 Reason For Visit: CHF Exacebation/Hypoxia/HTN Narrative: This is a very pleasant 73-year-old lady I am seeing at the request of the hospitalist because of concern regarding congestive heart failure she is has been having episodes of shortness of breath which he describes as fluid in her chest off and on for about a year. She says these episodes were managed by her primary care physician she has not had to be hospitalized in the past. She went to see her physician on Wednesday of last week when playing because of worsening dyspnea. She states she was in significant respiratory distress when she got to the office and when they saw her difficult a time she was having an ambulance was called and she was taken to the emergency department. She was evaluated in the ED and admitted to the hospital and for a couple of days was given intravenous furosemide. She is feeling better since she was diuresed she has now been switched to oral furosemide. She denies having any knowledge of any cardiac problems in the past she does have hypertension which was managed for a long time with lisinopril and atenolol. She says that her atenolol has been stopped because of bradycardia. She does have a history of elevated cholesterol no history of diabetes and a remote history of smoking she quit a long time ago. Not known to have underlying lung disease. She is overweight with a BMI of 32.2. She is a single lady in lives on her own her own home. She had an echocardiogram done upon this admission which was interpreted by myself as showing borderline left ventricular enlargement with preserved ejection fraction and moderate aortic valve regurgitation. She is not having any orthopnea or PND and she sleeps well. Review of Systems Constitutional: Constitutional: Reports no additional constitutional complaints Eyes: Eyes: Reports no additional eye complaints ENT: Reports system reviewed and no additional complaints, except as documented Cardiovascular: Cardiovascular: Reports as per HPI Respiratory: Respiratory: Reports dyspnea on exertion Gastrointestinal: Gastrointestinal: Reports no additional gastrointestinal complaints Musculoskeletal: Musculoskeletal: Reports no additional musculoskeletal complaints Integumentary/Breasts: Skin/Breast: Reports system reviewed and no additional complaints, except as docu Neurologic: Reports system reviewed and no additional complaints, except as documented Endocrine: Endocrine: Reports no additional endocrine complaints
[2023-12-27] MEDS: carvediloL 6.25 MG TABLET PO (20:05)
[2023-12-27 20:33] LABS: Glucose Point of Care 111 mg/dl (65-105)
[2023-12-28] VITALS (8 sets, daily range): BP systolic 123–157; BP diastolic 47–56; PULSE 56–66; RESP 18–20; TEMP 36.4–36.7; O2SAT 90–91
[2023-12-28 05:32] LABS: Hematocrit 48.5 % (37.0-47.0); Hemoglobin 15.1 g/dL (12.0-15.0); Mean Corpuscular HGB Conc 31.1 g/dl (32-36); Mean Corpuscular Hemoglobin 29.5 pg (26-34); Mean Corpuscular Volume 94.7 fl (80-100); Mean Platelet Volume 9.3 fl (7.4-10.4); Platelet Count Result 212 k/mm3 (150-375); Red Blood Count 5.12 M/mm3 (4.2-5.4); Red Cell Distribution Width 13.9 % (11.5-14.5); White Blood Count 8.4 K/mm3 (4.5-10.0)
[2023-12-28 05:38] LABS: Alanine Aminotransferase 16 U/L (6-35); Albumin Level 3.7 g/dL (3.5-5.1); Alkaline Phosphatase 75 U/L (38-126); Anion Gap 3 mmol/L (4-12); Aspartate Amino Transferase 21 U/L (14-36); Bilirubin,Total 0.9 mg/dL (0.2-1.3); Blood Urea Nitrogen 22 mg/dL (7-17); Calcium 8.6 mg/dL (8.4-10.2); Carbon Dioxide 36 mmol/L (22-30); Chloride 95 mmol/L (98-107); Estimated Glomerular Filt Rate > 60; Glucose 98 mg/dL (65-110); Potassium 3.8 mmol/L (3.4-5.0); Sodium 134 mmol/L (137-145)
[2023-12-28] MEDS: lisinopriL 20 MG TABLET PO (08:23)
[2023-12-28] MEDS: carvediloL 6.25 MG TABLET PO (08:23)
[2023-12-28] MEDS: EMPAGLIFLOZIN 10 MG TABLET PO (08:23)
[2023-12-28] MEDS: FUROSEMIDE 20 MG TABLET PO (08:24)
[2023-12-28] MEDS: SPIRONOLACTONE 25 MG TABLET PO (08:24)
--- NOTE | 2023-12-28 09:14 | PM.IMPN ---
Progress Note: A&P Assessment and Plan (1) Acute exacerbation of CHF (congestive heart failure): Code(s): I50.9 - Heart failure, unspecified Status: Acute Assessment and Plan: HFpEF unknown if systolic vs diastolic diurese as needed- I/O echocardiogram completed- EF 55-60% Summary ? 1. Complete two-dimensional, color flow and Doppler transthoracic echocardiogram is performed. ? 2. Left ventricular dimension at the upper limits of normal with overall normal systolic function. ? 3. Mild to moderate aortic valve regurgitation. ? 4. Mild mitral annular calcification. - daily intake and output - cardiology consulted -BP improved - moved out of MICU 12/24 to med surg tele - atenolol was stopped as bradycardic - on jardiance now - hypokalemia-will replace K -card saw her ok to keep lisinopril, add spironolactone, ok to continue jardiance. f/u with card outpt (2) Acute hypoxic respiratory failure: Code(s): J96.01 - Acute respiratory failure with hypoxia Status: Acute Assessment and Plan: currently on supplemental oxygen by nasal cannula wean off of oxygen as needed continuous pulse ox cpap at night (3) Hypertension, isolated systolic: Code(s): I10 - Essential (primary) hypertension Status: Acute Assessment and Plan: restart home meds- lisinopril 20 mg bid, will hold atelolol for now as was not even given as pt bradicardic continue to monitor- BP improved (4) Type 2 diabetes mellitus: Code(s): E11.9 - Type 2 diabetes mellitus without complications Status: Acute Assessment and Plan: holding Zetia insulin sliding scale as needed Plan card notes She has had a good clinical response to IV diuresis with furosemide and she is in no distress any longer.? She is not having any ischemic symptomatology.? Her echocardiogram shows borderline left ventricular enlargement with moderate aortic regurgitation.? I would recommend leaving her on her lisinopril at this time and starting carvedilol at home moderate dosage of 6.25 mg q.12 hours.? I would also recommend starting spironolactone 25 mg daily.? She has appropriately been started on Jardiance by the primary team.? I would hope she can be discharged in the next 24-48 hours if she is clinically stable and well compensated.? It remains to be seen whether she needs both spironolactone and furosemide.? She was on no diuretic therapy coming into the hospital.? I will follow her in the office in a timely fashion after discharge for medical titration.? At this point she is not having any ischemic symptoms and I do not think she needs to remain in the hospital for ischemia evaluation at least at this time Time Spent With Patient Time with patient: less than 15 minutes Subjective Date/time seen: 12/28/23 09:14 Interval history: admitted 12/23 for SOB x couple of days. She went to her PCPs office, was too tired to walk or talk upon getting inside. Patient found to be hypoxic her doctor's office.? She was placed on supplemental oxygen and felt better.? Reports compliance with home medication.? No chest pain. Patient was also found to have a? systolic blood pressure 230.? preliminary workup was significant for a BNP around 3000 Patient has been placed in observation for further evaluation management and treatment. 12/24- she is seen and examined today. She is sitting on side of the bed, alert, oriented, in no respiratory distress. Reports feeling a lot better. 12/25- seen and examined. Reports doing well. up and moving in room. Still has o2- goal today is to stop oxygen as tolerated. Will order card eval. she reports that he pcp diagnoses her with CHF last year and she never seen cardiology for an eval and treatment. 12/26 Seen and exmained today, down to 1 l per nc. doing well. was not able to drink much fluids at all. no swelling, no sob, no chest pain. 12/27 seen and examine dtoday. cardiology saw her yesterd
--- NOTE | 2023-12-28 12:33 | PM.DS ---
DS: Admitting Diagnosis Discharge Date 12/27 Admitting Diagnosis sob, chf DS: Discharge Diagnosis Discharge Diagnosis Plan HFpEF - diastolic, acute on chronic DS: Summary Hospital Course Hospital Course: admitted 12/23 for SOB x couple of days. She went to her PCPs office, was too tired to walk or talk upon getting inside. Patient found to be hypoxic her doctor's office.? She was placed on supplemental oxygen and felt better.? Reports compliance with home medication.? No chest pain. Patient was also found to have a? systolic blood pressure 230.? preliminary workup was significant for a BNP around 3000 Patient has been placed in observation for further evaluation management and treatment. 12/24- she is seen and examined today. She is sitting on side of the bed, alert, oriented, in no respiratory distress. Reports feeling a lot better. 12/25- seen and examined.? Reports doing well. up and moving in room.? Still has o2- goal today is to stop oxygen as tolerated. Will order card eval. she reports that he pcp diagnoses her with CHF last year and she never seen cardiology for an eval and treatment. 12/26 Seen and examined today, down to 1 l per nc. doing well. ? was not able to drink much fluids? at all. no swelling, no sob, no chest pain.\ 12/26- off oxy- feels A LOT BETTER, WANTS TO GO HOME. f/u with cardiology outpt Status at Discharge Functional status at discharge: independent ambulation Overall status at discharge: patient is back to baseline Time Spent with Patient Time attestation: Total time spent providing and/or coordinating discharge services: Time spent: Less than 30 minutes Exam Const: General: comfortable Resp: Effort & Inspection: normal respiratory effort Auscultation: clear to auscultation bilaterally, no crackles, no rales and no rhonchi Cardio: Rate: regular rate Rhythm: regular rhythm GI: Auscultation: normal bowel sounds Neuro: General: gait normal Motor exam (neuro): 5/5 motor strength present throughout Sensory Exam: normal sensation Extrem: General: normal to inspection Psych: Mental Status: mental status grossly normal Affect: normal affect DS: Data Data Completed and Pending Completed studies during hospitalization: chest xray, echo Pending studies at discharge: none Labs on day of discharge: Labs from last 24 hours 05/14/24 05/13/24 04:41 19:53 WBC 8.4 RBC 5.12 Hgb 15.1 H Hct 48.5 H MCV 94.7 MCH 29.5 MCHC 31.1 L RDW 13.9 Plt Count 212 MPV 9.3 Sodium 134 L Potassium 3.8 Chloride 95 L Carbon Dioxide 36 H Anion Gap 3 L BUN 22 H Creatinine 0.80 Estim Creat Clear Calc Not Reportable Estimated GFR > 60 Glucose 98 POC Capillary Glucose 111 H Calcium 8.6 Total Bilirubin 0.9 AST 21 ALT 16 Alkaline Phosphatase 75 Total Protein 7.0 Albumin 3.7 Discharge Plan Discharge Consulting providers: Iván Rojas Discharging Clinician: Rita Daniels Patient Disposition: Home, Self-Care Activity: as tolerated Diet: as tolerated and low sodium Patient Instructions: Antibiotic Form, Heart Failure (GEN) Stand Alone Forms: General Discharge Information Follow-up/Referrals: Iván Rojas MD [Physician] - 1 Week Iván Lee MD [Primary Care Provider] - 1 Week Discharge Medications: New Jardiance 10 mg Tablet 10 mg PO DAILY Qty: 90 0RF carvedilol [Coreg] 6.25 mg Tablet 6.25 mg PO Q12HR Qty: 90 0RF spironolactone 25 mg Tablet 25 mg PO QAM Qty: 90 0RF Continued lisinopril 20 mg tablet 20 mg PO Q12H ezetimibe [Zetia] 10 mg tablet 10 mg PO QAM Discontinued atenolol 50 mg tablet 50 mg PO Q12H Date of admission: 12/26/23 15:19 Primary Care Provider: Iván Lee Admitting Provider: Trevor Bettencourt Attending physician on admission: Trevor Bettencourt Condition: Stable
== END 2023-12-28 14:55 | disposition home or self-care (01) | DRG 291 ==
LOC: ANHED 13:04 → ANHIMU 15:48 → ANH2MED 12-25 21:07
PROVIDERS: Admitting Provider Internal Medicine; Emergency Provider Emergency Medicine; PCP Family Medicine; Visit Provider Nurse Practitioner
DX: I11.0 Hypertensive heart disease with heart failure (principal); I50.33 Acute on chronic diastolic (congestive) heart failure; J96.01 Acute respiratory failure with hypoxia; I35.8 Other nonrheumatic aortic valve disorders; I35.1 Nonrheumatic aortic (valve) insufficiency; E78.2 Mixed hyperlipidemia; J44.9 Chronic obstructive pulmonary disease, unspecified; G47.33 Obstructive sleep apnea (adult) (pediatric); E11.9 Type 2 diabetes mellitus without complications; Z87.891 Personal history of nicotine dependence
CPT/HCPCS: 36415; 36600; 71046; 80053; 82375; 82805; 82948; 83050; 83880; 84484; 85025; 85027; 85610; 85730; 93005; 93306; 96374; 99285; A9270; G0378; J1940; J7030

== ENCOUNTER 2025-03-26 07:56 | Outpatient (CLI) | payer MEDICARE, SELFPAY ==
--- OUTSIDE RECORDS SUMMARY | 2025-03-26 07:59 | XMS_ITS | Encounter Summary ---
Author Organization [email or web address] Address [address] [place] [address] Care Team Providers Care Aircraft Maintenance Technician Name Role Phone Unavailable Primary Care Provider Unavailabl e Encounter Details Date Type Department Care Team (Late st Contact Info) Description 08/01/1998 Outpatient Historical [facility] MRI DEPT Jose [place] MD [address] [facility] [address] [id number] Headache(784.0) (Primary Dx) Social History Tobacco Use Types Packs/Day Years Used Date Smoking Tobacco: Never Assessed Comments Unknown Sex and Gender Information Value Date Recorded Sex Assigned at Not on file 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
--- OUTSIDE RECORDS SUMMARY | 2025-03-26 07:59 | XMS_ITS | Clinical Summary ---
[facility] Address [address] 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
--- OUTSIDE RECORDS SUMMARY | 2025-03-26 07:59 | XMS_ITS | Encounter Summary ---
Author Organization [employer] Address [address] [place] [address] Care Team Providers Care Automatic Drill Operator Name Role Phone Unavailable Primary Care Provider Unavailabl e Encounter Details Date Type Department Care Team (Late st Contact Info) Description 09/09/1998 Outpatient Historical [facility] X/RAY HOSP Jose [place] MD [address] [facility] [address] [id number] Trigeminal nerve disorder, unspecified (Primary Dx) Social History Tobacco Use Types Packs/Day Years Used Date Smoking Tobacco: Never Assessed Comments Unknown Sex and Gender Information Value Date Recorded Sex Assigned at Not on file 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
--- NOTE | 2025-03-26 12:43 | WPDPFTINT ---
PFT Procedure Performed PFT Procedure Performed Plethysmography (Lung Vol) Diffusing Cap (DLCO) Flow Vol Loop Spirometry w/o Bronchodil PFT Interpretation This is a pulmonary function test with spirometry, plethysmography and diffusing capacity. The test was performed and results interpreted in accordance with the 2019 and 2005 ATS/ERS Task Force guidelines respectively using the Global Lung Function Initiative-2012 reference equations. Patient demonstrated good effort and cooperation. Reproducibility criteria were met. The quality of the spirometry maneuver was Grade A. Findings: Spirometry: There is decreased maximal expiratory airflow at all lung volumes with concave expiratory flow tracing. The contour the inspiratory flow tracing is normal. The FVC is 0.74 L, 33% predicted. The FEV1 is 0.47 L, 27% predicted. The FEV1: FVC ratio 63%. Plethysmography: Total lung capacity is 3.13 L, 73% predicted. The functional residual capacity is 2.46 L, 100% predicted. The residual volume is 2.31 L, 113% predicted. The residual volume: Total lung capacity ratio 74%. Diffusing capacity: The diffusing capacity unadjusted for hemoglobin and carboxyhemoglobin is 5.0, 28% predicted. The diffusing capacity adjusted for alveolar volume is 3.35, 75% predicted. Impression: There is a combined obstructive and restrictive ventilatory abnormality. There are no guidelines to assign the severity of obstruction and restriction with a combined abnormality. In my opinion, given the moderately concave expiratory flow tracing, decreased FEV1: FVC ratio, elevated residual volume: Total lung capacity ratio, and mild restrictive abnormality I would state there is a severe obstructive abnormality and a mild restrictive abnormality resulting in a very severe decrease in the FEV1. The diffusing capacity unadjusted for hemoglobin and carboxyhemoglobin is severely decreased and normalizes when adjusted for alveolar volume. There are no prior studies for comparison
== END 2025-03-26 07:57 | disposition home or self-care (01) ==
PROVIDERS: PCP Family Medicine; Visit Provider Family Medicine
DX: R94.2 Abnormal results of pulmonary function studies (principal); J44.9 Chronic obstructive pulmonary disease, unspecified; J62.8 Pneumoconiosis due to other dust containing silica; R09.02 Hypoxemia
CPT/HCPCS: 94375; 94726; 94729

== ENCOUNTER 2025-06-07 10:33 | Outpatient (CLI) | payer MEDICARE, SELFPAY ==
--- NOTE | ~2025-06-07 | XR_ITS ---
EXAMINATION: XR hand RT min 3V, 06/07/2025 10:38 CDT HISTORY: Unspecified injury of right wrist, hand and fi... COMPARISON: No comparisons available. Findings: No acute fracture or malalignment. Severe degenerative changes of the distal interphalangeal joints of the first metacarpal carpal joint, no erosions are identified Soft tissues unremarkable. Impression: No acute fracture or malalignment. Reviewed, dictated and finalized at location P. Impression: No acute fracture or malalignment.
== END 2025-06-07 10:34 | disposition home or self-care (01) ==
PROVIDERS: PCP Family Medicine; Visit Provider Student in an Organized Health Care Education/Training Program
DX: S69.91XA Unspecified injury of right wrist, hand and finger(s), initial encounter (principal); X58.XXXA Exposure to other specified factors, initial encounter
CPT/HCPCS: 73130